=== PATIENT | female | born 1945 | race Caucasian/White ===

== ENCOUNTER 2021-02-21 15:13 | Observation (INO) ==
[2021-02-21] MEDS ORDERED: SODIUM CHLORIDE 0.9% 1,000 ML IV STA (16:13)
[2021-02-21 16:18] LABS: Basophils % 0.6 % (0.0-0.8); Eosinophils # 0.1 10*3/uL (0.0-0.87); Eosinophils % 2.3 % (0.00-10.9); Hemoglobin 10.2 GM/DL (12.0-16.0); Immature Granulocytes % 0.5 %; Immature Granulocytes Absolute 0.03 #; Lymphocytes # 1.4 10*3/uL (1.4-4.0); Lymphocytes % 21.9 % (21.3-54.2); Mean Corpuscular HGB Conc 32.9 GM/DL (32-36); Mean Corpuscular Volume 95.7 FL (87-102); Mean Platelet Volume 12.5 FL (9.6-12.0); Monocytes % 6.6 % (1.7-12.7); Neutrophils % 68.1 % (38.7-73.9); Platelet Count 123 T/CUMM (130-400); Red Blood Count 3.24 MC/CUMM (3.8-5.5); Red Cell Distribution Width 16.7 % (9.3-17.3); White Blood Count 6.2 T/CUMM (4-12)
[2021-02-21 16:38] LABS: Albumin 2.2 G/DL (3.4-5.0); Bilirubin,Total 0.9 MG/DL (0.2-1.0); Calcium 8.1 MG/DL (8.5-10.1); Osmolality,Calculated 301.7 MOS/KG (273-304); Potassium 3.8 MMOL/L (3.5-5.1); Total Protein 5.3 G/DL (6.4-8.2)
[2021-02-21] MEDS ORDERED: ONDANSETRON 4 MG/2 ML VIAL IV STA (17:33)
[2021-02-21] MEDS ORDERED: MORPHINE 4 MG/1 ML VIAL IV STA (17:33)
[2021-02-21 17:34] LABS: Bacteria,Urine Occasional /HPF (Few); Bilirubin,Urine Negative (Negative); Blood, Urine Negative (Negative); Glucose,Urine (UA) Negative (Negative); Hyaline Casts,Urine 1 /LPF (0-3); Ketones,Urine Negative (Negative); Nitrite,Urine Negative (Negative); Protein,Urine Negative; RBC,Urine 1 /HPF (0-4); Squamous Epithelial Cell,Urine Occasional /HPF (0-10); Urine Appearance Slightly Hazy (Clear); Urine Color Yellow (Yellow); Urine Urobilinogen < 2.0 EU/DL (0.2-1.0)
[2021-02-21] MEDS ORDERED: cefTRIAXone 1,000 MG in SODIUM CHLORIDE 0.9% 100 ML IV STA (17:44)
[2021-02-21] MEDS ORDERED: traZODone 50 MG TABLET PO PRN (18:32)
[2021-02-21] MEDS ORDERED: ALBUTEROL 2.5 MG/3 ML NEB RESP TX PRN (18:32)
[2021-02-21] MEDS ORDERED: ACETAMINOPHEN 325 MG TABLET PO PRN (18:32)
[2021-02-21] MEDS ORDERED: ONDANSETRON 4 MG/2 ML VIAL IV PRN (18:32)
[2021-02-21] MEDS ORDERED: hydrALAZINE 20 MG/1 ML VIAL IV PRN (18:32)
[2021-02-21] MEDS ORDERED: GLUCAGON 1 MG VIAL IM PRN (18:32)
[2021-02-21] MEDS ORDERED: DEXTROSE 50% 25 GM/50 ML VIAL IV PRN (18:32)
[2021-02-21] MEDS: SODIUM CHLORIDE 0.9% 1,000 ML IV SCH (22:18)
[2021-02-21] MEDS: DOCUSATE SODIUM 100 MG CAPSULE PO SCH (23:51)
[2021-02-22 01:52] LABS: Albumin 2.4 G/DL (3.4-5.0); Bilirubin,Total 0.8 MG/DL (0.2-1.0); Calcium 8.2 MG/DL (8.5-10.1); Osmolality,Calculated 302.4 MOS/KG (273-304); Potassium 3.8 MMOL/L (3.5-5.1); Risk Ratio 3.31; Thyroid Stimulating Hormone 2.17 uIU/ml (0.358-3.74); Total Protein 5.6 G/DL (6.4-8.2); VLDL CHOLESTEROL 24.4 MG/DL
[2021-02-22 02:16] LABS: Basophils % 0.6 % (0.0-0.8); Eosinophils # 0.1 10*3/uL (0.0-0.87); Eosinophils % 1.9 % (0.00-10.9); Hematocrit 32.1 VOL% (35.7-47.0); Hemoglobin 10.8 GM/DL (12.0-16.0); Immature Granulocytes % 0.6 %; Immature Granulocytes Absolute 0.04 #; Lymphocytes # 1.4 10*3/uL (1.4-4.0); Lymphocytes % 20.5 % (21.3-54.2); Mean Corpuscular HGB Conc 33.6 GM/DL (32-36); Mean Corpuscular Volume 96.4 FL (87-102); Mean Platelet Volume 12.6 FL (9.6-12.0); Monocytes % 5.8 % (1.7-12.7); Neutrophils % 70.6 % (38.7-73.9); Platelet Count 138 T/CUMM (130-400); Red Blood Count 3.33 MC/CUMM (3.8-5.5); Red Cell Distribution Width 16.8 % (9.3-17.3); White Blood Count 6.8 T/CUMM (4-12)
[2021-02-22] MEDS: SODIUM CHLORIDE 0.9% 1,000 ML IV SCH (07:43)
[2021-02-22] MEDS: DOCUSATE SODIUM 100 MG CAPSULE PO SCH ×2 (08:52→20:12)
[2021-02-22] MEDS: PANTOPRAZOLE 40 MG TABLET PO SCH (08:52)
[2021-02-22] MEDS: LIDOCAINE 5% PATCH TRANSDERM SCH (08:52)
[2021-02-22] MEDS ORDERED: cefTRIAXone 1,000 MG in SODIUM CHLORIDE 0.9% 100 ML IV SCH (18:00)
[2021-02-22] MEDS: ZINC OXIDE 16% PASTE 57 GM TUBE TOP SCH ×2 (18:14→20:14)
[2021-02-23] MEDS: SODIUM CHLORIDE 0.9% 1,000 ML IV SCH ×2 (00:06→09:50)
[2021-02-23 08:10] LABS: Calcium 7.7 MG/DL (8.5-10.1); Osmolality,Calculated 301.8 MOS/KG (273-304); Potassium 3.7 MMOL/L (3.5-5.1)
[2021-02-23 08:52] LABS: Basophils % 0.7 % (0.0-0.8); Eosinophils # 0.1 10*3/uL (0.0-0.87); Eosinophils % 2.6 % (0.00-10.9); Hematocrit 30.1 VOL% (35.7-47.0); Hemoglobin 9.6 GM/DL (12.0-16.0); Immature Granulocytes % 0.5 %; Immature Granulocytes Absolute 0.02 #; Lymphocytes # 1.1 10*3/uL (1.4-4.0); Lymphocytes % 26.8 % (21.3-54.2); Mean Corpuscular HGB Conc 31.9 GM/DL (32-36); Mean Corpuscular Volume 98.7 FL (87-102); Mean Platelet Volume 12.5 FL (9.6-12.0); Monocytes % 8.9 % (1.7-12.7); Neutrophils % 60.5 % (38.7-73.9); Platelet Count 112 T/CUMM (130-400); Red Blood Count 3.05 MC/CUMM (3.8-5.5); Red Cell Distribution Width 17.2 % (9.3-17.3); White Blood Count 4.2 T/CUMM (4-12)
[2021-02-23] MEDS: PANTOPRAZOLE 40 MG TABLET PO SCH (09:51)
[2021-02-23] MEDS: DOCUSATE SODIUM 100 MG CAPSULE PO SCH (09:51)
[2021-02-23] MEDS: LIDOCAINE 5% PATCH TRANSDERM SCH (09:51)
[2021-02-23] MEDS: ZINC OXIDE 16% PASTE 57 GM TUBE TOP SCH (09:51)
[2021-02-23] MEDS ORDERED: TUBERCULIN SKIN TEST 0.1 ML SYRINGE INTRADERM ONE (11:40)
[2021-02-23 15:30] VITALS: BP 101/55
== END 2021-02-23 17:52 | DRG 683 ==
LOC: N.ED 15:13 → N.EDINP 15:13 → N.4E 20:31 → SUATTDRO 02-22 10:32
PROVIDERS: ADMIT Internal Medicine; ATTEND Internal Medicine